=== PATIENT | male | born 1960 | race Asian ===

== ENCOUNTER 2022-11-15 15:29 | Emergency (ER) | payer OTHER ==
[~2022-11-15] VITALS: Ht 157.5 cm; Wt 54.4 kg
--- NOTE | 2022-11-15 15:40 | NUR ---
Placed in room 08 . Placed on monitoring manager, blood pressure machine and pulse oximeter. To gown for exam. Side rails up. Report given to SONJA Ventura and SONJA Armas
[2022-11-15 15:42] VITALS: BP_SYST 175
--- NOTE | 2022-11-15 15:45 | NUR ---
Pt BIB . c/o rectal bleeding with abdominal pain. Pt pain 5/10. Pt states noted blood in stool last night when having BM. 2 episodes of bloody stools. Pt states LLQ pain. Pt denies straining, pt denies constipation. Pt denies trauma to area. Pt afebrile. Denies nausea but has had diarrhea the past 2 days. Pt VSS. AAOX4. Skin dry and intact. Pt speaking full complete sentences. Pt in bed with side rails up. at bedside.
[2022-11-15 16:20] LABS: CALCIUM 8.9 mg/dL (8.4-11.0); CREATININE 0.96 mg/dL (0.55-1.30)
[2022-11-15 16:22] LABS: BASOPHILS # (AUTO) 0.1 K/uL (0.0-0.2); BASOPHILS % (AUTO) 0.9 % (0.0-2.0); EOSINOPHILS # (AUTO) 0.4 K/uL (0.0-0.4); EOSINOPHILS % (AUTO) 6.2 % (0.0-4.0); HEMOGLOBIN 11.8 g/dL (14.0-18.0); LYMPHOCYTES % (AUTO) 34.5 % (20.5-51.5); MEAN CORPUSCULAR HEMOGLOBIN 21 pg (27-31); MEAN CORPUSCULAR HGB CONC 31 % (32-36); MEAN CORPUSCULAR VOLUME 67 fL (79.0-98.0); MONOCYTES # (AUTO) 0.5 K/uL (0.0-1.0); MONOCYTES % (AUTO) 8.6 % (1.7-9.3); NEUTROPHILS # (AUTO) 2.9 K/uL (1.8-7.7); NEUTROPHILS % (AUTO) 49.8 % (40.0-70.0); PLATELET COUNT (AUTO) 243 K/uL (130-430); RED BLOOD CELL COUNT(AUTO) 5.65 MIL/uL (4.2-6.2); RED CELL DISTRIBUTION WIDTH 15.8 % (9.0-15.0); WHITE BLOOD COUNT (AUTO) 5.9 K/uL (4.8-10.8)
[2022-11-15 16:24] LABS: ALBUMIN 4.1 g/dL (3.4-4.8); PROTHROMBIN TIME 10.5 SECS (9.5-12.5); TOTAL BILIRUBIN 0.6 mg/dL (0.0-1.0)
--- NOTE | 2022-11-15 16:30 | NUR ---
ER at bedside examining patient.
[2022-11-15] MEDS ORDERED: OMEP20CA15 PO (17:06)
[2022-11-15] MEDS ORDERED: TRAM50TA2 PO (17:06)
--- NOTE | 2022-11-15 17:14 | NUR ---
Patient given written and verbal discharge instructions and verbalizes understanding. ER MD discussed with patient the results and treatment provided. Patient in stable condition. ID arm band removed. Opportunity for questions provided and answered. Medication side effect fact sheet provided.
[2022-11-15 17:17] VITALS: BP_SYST 168
== END 2022-11-15 17:14 | disposition home or self-care (01) ==
LOC: SED 15:29
DX: K92.1 Melena (principal); Z79.899 Other long term (current) drug therapy
CPT/HCPCS: 36415; 76376; 80053; 82150; 83605; 83690; 85025; 85610-TC; 85730-TC; 86886; 86900; 86901; 99284

== ENCOUNTER 2022-12-03 05:40 | Day surgery (SDC) | payer OTHER ==
[~2022-12-03] VITALS: Ht 160 cm; Wt 55.3 kg
[~2022-12-03 05:40] MED LIST: OMEP20CA15 PO; TRAM50TA2 PO
[2022-12-03] MEDS ORDERED: fentaNYL CITRATE/PF 100 MCG/2 ML AMP ONE (06:16)
[2022-12-03] MEDS ORDERED: SIMETHICONE 40 MG/0.6 ML ML ONE (06:16)
[2022-12-03] MEDS ORDERED: MIDAZOLAM HCL 5 MG/5 ML VIAL ONE (06:16)
[2022-12-03 12:24] VITALS: BP_SYST 155
== END 2022-12-03 09:00 | disposition home or self-care (01) ==
LOC: SDS 05:40 → SMU 05:40 → SDS 09:00
PROVIDERS: ATTEND Internal Medicine
DX: Z12.11 Encounter for screening for malignant neoplasm of colon (principal); D12.2 Benign neoplasm of ascending colon; K29.50 Unspecified chronic gastritis without bleeding; K29.80 Duodenitis without bleeding; K64.8 Other hemorrhoids; R10.13 Epigastric pain; Z79.899 Other long term (current) drug therapy
CPT/HCPCS: 45385; 43239; 87081; 36415; 88305; 88312; 88313; 99152; G0378; J2250; J3010